=== PATIENT | male | born 1985 | race Caucasian/White ===

== ENCOUNTER 2016-09-12 11:45 | Emergency (ER) | payer OTHER | END 2016-09-12 11:50 | disposition home or self-care (01) | LOC: CFTX 11:45 | DX: R11.2 Nausea with vomiting, unspecified (principal); R03.0 Elevated blood-pressure reading, without diagnosis of hypertension | CPT/HCPCS: 99283 ==

== ENCOUNTER 2016-12-14 00:13 | Emergency (ER) | payer OTHER | END 2016-12-14 01:25 | disposition home or self-care (01) | LOC: CED 00:13 | DX: S33.5XXA Sprain of ligaments of lumbar spine, initial encounter (principal); F17.200 Nicotine dependence, unspecified, uncomplicated; Z88.0 Allergy status to penicillin; V09.9XXA Pedestrian injured in unspecified transport accident, initial encounter; Y92.410 Unspecified street and highway as the place of occurrence of the external cause | CPT/HCPCS: 99283 ==

== ENCOUNTER 2017-02-21 11:34 | Emergency (ER) | payer OTHER ==
[~2017-02-21] VITALS: Ht 167.6 cm; Wt 72.6 kg
--- NOTE | ~2017-02-21 | EKG ---
PATIENT: KARMEN AUGUST UNIT #: [id number] Ventricular Rate: 72 BPM Atrial Rate: 72 BPM P-R Interval: 122 ms QRS Duration: 104 ms Q-T Interval: 370 ms QTC Calculation(Bezet): 405 ms P Ramsey: -6 degrees Calculated R Ramsey: -7 degrees Calculated T Ramsey: 40 degrees Diagnosis Line: Normal sinus rhythm Diagnosis Line: Normal ECG Diagnosis Line: No previous ECGs available Diagnosis Line: Confirmed by MICKIE SOLO MD ([id number]) on Diagnosis Line: 02/22/2017 9:44:36 AM INTERPRETING MD: EDIL WHITNEY
--- NOTE | ~2017-02-21 | CR63 ---
[facility] A Service of [facility] RADIOLOGY TEXT RESULTS PATIENT: KARMEN AUGUST LOCATION: [place] : [birth year] UNIT #: [id number] AGE: [address]: Patricia Yu APRN SEX: M ORDER DR: [id number] [facility] [address] [place], [place] [address] [id number] E MR#: [id number] Acc #: [id number] NAME: KARMEN AUGUST : 1985 SEX: M STUDY DATE/TIME: 02/21/2017 13:17 UNIT: [facility] ROOM: STUDY DESCRIPTION: CR Chest 2 View Attending Physician: Patricia Yu A.P.R.N. Ordering Physician: Ed Xavi Hoffmann M.D. Primary Care Physician: [facility] MEDICAL IMAGING REPORT This report is preliminary unless electronic signature is present EXAM Chest, 02/21/2017, [facility]. HISTORY 31-year-old male patient; chest pressure, chest heaviness, sore throat. Cough and congestion. Symptoms noted yesterday. COMPARISON Chest 06/14/2015 FINDINGS PA and lateral chest views show normal cardiac size and configuration. Hilar structures and mediastinal contours are preserved. Bilateral lungs are expanded and remain clear. Costophrenic angles are preserved. IMPRESSION Negative and stable chest. No acute finding. Dictated by... Micah Petty M.D. THIS IS AN ELECTRONICALLY VERIFIED REPORT Micah Petty M.D. at 02/21/2017 2:22 PM Augustus TD: 02/21/2017 14:18 JOB #: [id number] MEDICAL IMAGING REPORT Page 1 of 1 COPY
[2017-02-21 12:37] LABS: BASOPHIL# 0.1 X10e3 (0-0.3); BASOPHIL% 0.7 % (0-2.5); EOSINOPHIL# 0.3 X10e3 (0-0.7); EOSINOPHIL% 2.8 % (0.0-7.0); HEMATOCRIT 42.8 % (38.0-50.0); HEMOGLOBIN 14.4 gm/dL (13.0-16.0); LYMPHOCYTE# 1.1 X10e3 (1.0-3.5); LYMPHOCYTE% 10.5 % (17.0-45.0); MEAN CELL VOLUME 88.6 FL (83-96); MEAN CORPUSCULAR HEMOGLOBIN 29.9 PG (28-34); MEAN CORPUSCULAR HGB CONC 33.7 g/dL (30-36); MEAN PLATELET VOLUME 9.9 FL (6.5-11.5); MONOCYTE# 0.6 X10e3 (0-1.0); MONOCYTE% 5.5 % (3.0-12.0); NEUTROPHIL# 8.7 X10e3 (1.5-7.1); NEUTROPHIL% 80.5 % (40-75); PLATELET COUNT 154 X10e3 (140-420); RED BLOOD COUNT 4.83 X10e (3.90-5.60); RED CELL DISTRIBUTION WIDTH 13.8 % (11.0-15.5); WHITE BLOOD COUNT 10.7 X10e3 (4.0-10.5)
[2017-02-21 12:41] LABS: DIFF IND NO
[2017-02-21 12:57] LABS: CALCIUM SERUM 8.7 mg/dL (8.4-10.2); GLOM FILT RATE Estimated 99.9 mL/min (>60)
[2017-02-21 13:11] LABS: POC - CKMB <1.0 ng/mL (0.0-7.9); POC - TROPONIN <0.05 ng/mL (<=0.05)
== END 2017-02-21 14:07 | disposition home or self-care (01) ==
LOC: CFTX 11:34 → CED 11:34 → CFTX 12:40
PROVIDERS: Nurse Practitioner
DX: J20.9 Acute bronchitis, unspecified (principal); R07.89 Other chest pain; R03.0 Elevated blood-pressure reading, without diagnosis of hypertension; F17.210 Nicotine dependence, cigarettes, uncomplicated; Z88.1 Allergy status to other antibiotic agents
CPT/HCPCS: 71020; 80048; 82553; 83880; 84484; 85025; 87651; 93005; 99283